=== PATIENT | female | born 1955 | race Caucasian/White ===

== ENCOUNTER 2016-05-17 10:03 | Emergency (ER) | payer OTHER ==
[2016-05-17] MEDS ORDERED: MORPHINE SULFATE 4 MG/ML SYRINGE IV STA (11:25)
[2016-05-17] MEDS ORDERED: SODIUM CHLORIDE 0.9% 1,000 ML IV STA (11:25)
[2016-05-17] MEDS ORDERED: SODIUM CHLORIDE 0.9% 500 ML IV STA (11:25)
[2016-05-17] MEDS ORDERED: ONDANSETRON 4 MG/2 ML VIAL IVP STA (11:25)
[2016-05-17 11:51] LABS: Basophils # (A) 0.1 k/uL (0-0.2); Basophils % (A) 1 %; CH 26.8; CHCM 33.3; Eosinophils % (A) 0 %; HCT 44.2 % (34.0-46.0); HDW 3.26; HGB 14.8 gm/dL (11.4-16.0); Luc # (Auto) 0.13; Luc % (Auto) 1; Lymphocytes % (A) 14 %; MCH 27.2 pg (25.0-35.0); MCHC 33.6 g/dL (31.0-37.0); MCV 80.8 fL (80.0-100.0); Mean Platelet Volume 6.7; Monocytes # (A) 0.4 k/uL (0-1.0); Monocytes % (A) 3 %; Neutrophils # (A) 11.6 k/uL (1.3-7.7); Neutrophils % (A) 82 %; RBC 5.47 m/uL (3.80-5.40); RDW 15.7 % (11.5-15.5); WBC 14.2 k/uL (3.8-10.6); WBC (Perox) 14.07
[2016-05-17 12:06] LABS: Calcium 9.8 mg/dL (8.4-10.2); Potassium 5.2 mmol/L (3.5-5.1); Total Protein 7.6 g/dL (6.3-8.2)
--- NOTE | 2016-05-17 12:18 | ED ---
General Adult HPI - General Chief complaint: Abdominal Pain Stated complaint: pain, rt side flank Time Seen by Provider: 05/17/16 10:38 Source: patient, RN notes reviewed, old records reviewed Mode of arrival: ambulatory Limitations: no limitations - History of Present Illness Initial comments: This is a 60-year-old female here for evaluation of abdominal pain. Right flank pain rating to groin as well as epigastric abdominal pain, no modifying factors or pain Epigastric abdominal pain. No modifying factors for pain. Patient states she does have history of kidney stones and this may feel similar. Pain started last night no fevers or nausea vomiting or diarrhea. No prior history of abdominal surgery. No change in appetite, no recent weight gain or weight loss. - Related Data Home Medications Medication Instructions Recorded Confirmed ALPRAZolam [Xanax] 0.25 mg PO DAILY PRN 05/17/16 05/17/16 Albuterol Inhaler [Ventolin Hfa 2 puff INHALATION DAILY PRN 05/17/16 05/17/16 Inhaler] Citalopram Hydrobromide [CeleXA] 20 mg PO DAILY 05/17/16 05/17/16 Diltiazem HCl [Diltiazem 24Hr ER] 180 mg PO DAILY 05/17/16 05/17/16 Insulin NPH Human Isophane 20 unit SQ BID 05/17/16 05/17/16 [NovoLIN N] Losartan Potassium [Cozaar] 50 mg PO DAILY 05/17/16 05/17/16 glyBURIDE [Diabeta] 10 mg PO DAILY 05/17/16 05/17/16 traMADol HCL [Ultram] 50 mg PO BID PRN 05/17/16 05/17/16 Previous Rx's Medication Instructions Recorded HYDROcodone/APAP 5-325MG [Avalon 1 tab PO Q6HR PRN #30 tab 05/17/16 5-325] Naproxen [Naprosyn] 500 mg PO Q12HR #30 tab 05/17/16 Ondansetron [Zofran] 4 mg PO Q8HR PRN #30 tab 05/17/16 Tamsulosin HCl [Flomax] 0.4 mg PO DAILY #30 cap.er.24h 05/17/16 Allergies Allergy/AdvReac Type Severity Reaction Status Date / Time Sulfa (Sulfonamide Allergy Rash/Hives Verified 05/17/16 10:39 Antibiotics) steroids AdvReac Unknown Uncoded 05/17/16 10:12 Review of Systems ROS Statement: Those systems with pertinent positive or pertinent negative responses have been documented in the HPI. ROS Other: All systems not noted in ROS Statement are negative. Past Medical History Additional Past Medical History / Comment(s): back pain History of Any Multi-Drug Resistant Organisms: None Reported Past Surgical History: Back Surgery Past Psychological History: No Psychological Hx Reported Smoking Status: Never smoker Past Alcohol Use History: None Reported Past Drug Use History: None Reported General Exam Limitations: no limitations General appearance: alert, in no apparent distress Head exam: Present: atraumatic, normocephalic, normal inspection Eye exam: Present: normal appearance, PERRL, EOMI. Absent: scleral icterus, conjunctival injection, periorbital swelling ENT exam: Present: normal exam, mucous membranes moist Neck exam: Present: normal inspection. Absent: tenderness, meningismus, lymphadenopathy Respiratory exam: Present: normal lung sounds bilaterally. Absent: respiratory distress, wheezes, rales, rhonchi, stridor Cardiovascular Exam: Present: regular rate, normal rhythm, normal heart sounds. Absent: systolic murmur, diastolic murmur, rubs, gallop, clicks GI/Abdominal exam: Present: soft, tenderness (Epigastric to right upper quadrant ), normal bowel sounds. Absent: distended, guarding, rebound, rigid Extremities exam: Present: normal inspection, full ROM, normal capillary refill. Absent: tenderness, pedal edema, joint swelling, calf tenderness Back exam: Present: normal inspection Neurological exam: Present: alert, oriented X3, CN II-XII intact Psychiatric exam: Present: normal affect, normal mood Skin exam: Present: warm, dry, intact, normal color. Absent: rash Course Vital Signs 05/17/16 10:10 Temperature 98.3 F Pulse Rate 102 H Respiratory 20 Rate Blood Pressure 187/93 O2 Sat by Pulse 98 Oximetry - Reevaluation(s) Reevaluation #1: 05/17/16 12:50 Patient's pain this point is resolved Medical Decision Making - Medical Decision Making 60 female here for evaluation of bowel pain. Right-sided kidney stone, mild hydro-no UTI, patient can be discharged home - Lab Data Result diagrams: 05/17/16 10:48 05/17/16 10:48 Lab Results 05/17/16 05/17/16 05/17/16 Range/Units 10:48 10:48 10:48 WBC 14.2 H (3.8-10.6) k/uL RBC 5.47 H (3.80-5.40) m/uL Hgb 14.8 (11.4-16.0) gm/dL Hct 44.2 (34.0-46.0) % MCV 80.8 (80.0-100.0) fL MCH 27.2 (25.0-35.0) pg MCHC 33.6 (31.0-37.0) g/dL RDW 15.7 H (11.5-15.5) % Plt Count 381 (150-450) k/uL Neutrophils % 82 % Lymphocytes % 14 % Monocytes % 3 % Eosinophils % 0 % Basophils % 1 % Neutrophils # 11.6 H (1.3-7.7) k/uL Lymphocytes # 2.0 (1.0-4.8) k/uL Monocytes # 0.4 (0-1.0) k/uL Eosinophils # 0.0 (0-0.7) k/uL Basophils # 0.1 (0-0.2) k/uL Sodium 138 (137-145) mmol/L Potassium 5.2 H (3.5-5.1) mmol/L Chloride 98 (98-107) mmol/L Carbon Dioxide 23 (22-30) mmol/L Anion Gap 17 mmol/L BUN 27 H (7-17) mg/dL Creatinine 1.50 H (0.52-1.04) mg/dL Est GFR (MDRD) Af Amer 43 (>60 ml/min/1.73 sqM) Est GFR (MDRD) Non-Af 35 (>60 ml/min/1.73 sqM) Glucose 338 H (74-99) mg/dL Calcium 9.8 (8.4-10.2) mg/dL Total Bilirubin 1.0 (0.2-1.3) mg/dL AST 29 (14-36) U/L ALT 33 (9-52) U/L Alkaline Phosphatase 157 H (38-126) U/L Total Creatine Kinase 40 (30-135) U/L CK-MB (CK-2) 0.2 (0.0-2.4) ng/mL CK-MB (CK-2) Rel Index 0.5 Troponin I <0.012 (0.000-0.034) ng/mL Total Protein 7.6 (6.3-8.2) g/dL Albumin 4.3 (3.5-5.0) g/dL Amylase 58 (30-110) U/L Lipase 266 (23-300) U/L Urine Color Urine Appearance (Clear) Urine pH (5.0-8.0) Ur Specific Prosper (1.001-1.035) Urine Protein (Negative) Urine Glucose (UA) (Negative) Urine Ketones (Negative) Urine Blood (Negative) Urine Nitrite (Negative) Urine Bilirubin (Negative) Urine Urobilinogen (<2.0) mg/dL Ur Leukocyte Esterase (Negative) Urine RBC (0-5) /hpf Urine WBC (0-5) /hpf Ur Squamous Epith Cells (0-4) /hpf Urine Bacteria (None) /hpf 05/17/16 Range/Units 11:49 WBC (3.8-10.6) k/uL RBC (3.80-5.40) m/uL Hgb (11.4-16.0) gm/dL Hct (34.0-46.0) % MCV (80.0-100.0) fL MCH (25.0-35.0) pg MCHC (31.0-37.0) g/dL RDW (11.5-15.5) % Plt Count (150-450) k/uL Neutrophils % % Lymphocytes % % Monocytes % % Eosinophils % % Basophils % % Neutrophils # (1.3-7.7) k/uL Lymphocytes # (1.0-4.8) k/uL Monocytes # (0-1.0) k/uL Eosinophils # (0-0.7) k/uL Basophils # (0-0.2) k/uL Sodium (137-145) mmol/L Potassium (3.5-5.1) mmol/L Chloride (98-107) mmol/L Carbon Dioxide (22-30) mmol/L Anion Gap mmol/L BUN (7-17) mg/dL Creatinine (0.52-1.04) mg/dL Est GFR (MDRD) Af Amer (>60 ml/min/1.73 sqM) Est GFR (MDRD) Non-Af (>60 ml/min/1.73 sqM) Glucose (74-99) mg/dL Calcium (8.4-10.2) mg/dL Total Bilirubin (0.2-1.3) mg/dL AST (14-36) U/L ALT (9-52) U/L Alkaline Phosphatase (38-126) U/L Total Creatine Kinase (30-135) U/L CK-MB (CK-2) (0.0-2.4) ng/mL CK-MB (CK-2) Rel Index Troponin I (0.000-0.034) ng/mL Total Protein (6.3-8.2) g/dL Albumin (3.5-5.0) g/dL Amylase (30-110) U/L Lipase (23-300) U/L Urine Color Light Yellow Urine Appearance Clear (Clear) Urine pH 5.0 (5.0-8.0) Ur Specific Prosper 1.016 (1.001-1.035) Urine Protein Trace H (Negative) Urine Glucose (UA) 4+ H (Negative) Urine Ketones Negative (Negative) Urine Blood Moderate H (Negative) Urine Nitrite Negative (Negative) Urine Bilirubin Negative (Negative) Urine Urobilinogen <2.0 (<2.0) mg/dL Ur Leukocyte Esterase Small H (Negative) Urine RBC 23 H (0-5) /hpf Urine WBC 5 (0-5) /hpf Ur Squamous Epith Cells 2 (0-4) /hpf Urine Bacteria Rare H (None) /hpf - Radiology Data Radiology results: report reviewed (CT of the pelvis positive for kidney stone, ultrasound of gallbladder is negative), image reviewed Disposition Clinical Impression: Abdominal pain, Right kidney stone, Hydronephrosis Disposition: HOME SELF-CARE Condition: Good Instructions: Kidney Stones (ED) Prescriptions: HYDROcodone/APAP 5-325MG [Avalon 5-325] 1 tab PO Q6HR PRN #30 tab PRN Reason: Pain Naproxen [Naprosyn] 500 mg PO Q12HR #30 tab Ondansetron [Zofran] 4 mg PO Q8HR PRN #30 tab PRN Reason: Nausea Tamsulosin HCl [Flomax] 0.4 mg PO DAILY #30 cap.er.24h Referrals: Nonstaff,Physician [Primary Care Provider] - 1-2 days
[2016-05-17 12:21] LABS: Creatine Kinase 40 U/L (30-135)
[2016-05-17 12:29] LABS: Appearance,Urine Clear (Clear); Bacteria,Urine Rare /hpf; Bilirubin,Urine Negative (Negative); Glucose,Urine (UA) 4+ (Negative); Ketones,Urine Negative (Negative); Leukocyte Esterase,Urine Small (Negative); Nitrite,Urine Negative (Negative); Particle Count 3872; Protein,Urine Trace (Negative); RBC,Urine 23 /hpf (0-5); Specific Gravity,Urine 1.016 (1.001-1.035); Squamous Epithelial Cell,Urine 2 /hpf (0-4); UA Billing (MACRO vs. MICRO) MICRO; Urobilinogen,Urine <2.0 mg/dL (<2.0); WBC,Urine 5 /hpf (0-5)
--- NOTE | 2016-05-17 12:33 | US ---
EXAMINATION TYPE: US gallbladder DATE OF EXAM: 05/17/2016 12:14 PM COMPARISON: NONE CLINICAL HISTORY: 60-year-old female with nausea, vomiting, right upper quadrant Pain. TECHNIQUE: Multiple sonographic images of the right upper quadrant are obtained. FINDINGS: EXAM MEASUREMENTS: Liver Length: 24.9 cm Gallbladder Wall: 0.2 cm CBD: 0.3 cm Right Kidney: 11.4 x 5.8 x 5.4 cm Pancreas: Suboptimal visualization of the pancreatic tail secondary to shadowing from bowel gas. Visu alized portions show no gross anomaly. Liver: Enlarged, echogenic, and attenuating. This secondarily limits assessment for focal lesion. Gallbladder: No abnormal gallbladder distention, wall thickening, pericholecystic fluid, or shadowin g calculi. Evidence for sonographic Frey's sign: No CBD: wnl Right Kidney: Moderate hydronephrosis IMPRESSION: 1. Marked hepatomegaly and moderate to severe hepatic steatosis. Correlate with LFTs, lipid profile, and patient risk factors. 2. Moderate right-sided hydronephrosis. Clinically correlate.
[2016-05-17 12:35] LABS: Creatine Kinase MB 0.2 ng/mL (0.0-2.4); Troponin I <0.012 ng/mL (0.000-0.034)
--- NOTE | 2016-05-17 12:42 | CT ---
EXAMINATION TYPE: CT abdomen pelvis wo con DATE OF EXAM: 05/17/2016 12:32 PM COMPARISON: NONE INDICATION: Rt flank pain DLP: 2841.9 mGycm, Automated exposure control for dose reduction was used. CONTRAST: 0 mL of Omnipaque 300. Study performed without Oral Contrast TECHNIQUE: Axial images were obtained from above the diaphragm to the pubic rami in the axial plane a t 5 mm thick sections. Reconstructed images are reviewed on the computer in the coronal plane. FINDINGS: Limited CT sections are obtained the lung bases. The lung bases are clear. CT ABDOMEN: Liver: Normal Spleen: Normal Pancreas: Normal Adrenal glands: The adrenal glands are normal. Gallbladder: Normal Kidneys: No masses are evident. There is a moderate right hydronephrosis. Hydroureter is evident. The re is an obstructing proximal right renal stone measuring 0.4 cm. Series 3 image 51. Some perinephric stranding is present. There is a 2.2 cm cyst measuring 20 Hounsfield units on the medial mid right k idney. Aorta: Mild Vascular calcification is within the aorta. Inferior vena cava: Normal. CT PELVIS: Diffuse scattered diverticuli within the colon. Sigmoid colon contains a few granuloma. Appendix: Not identified Urinary bladder: Normal. Genitourinary structures: Osseous structures: No suspicious lytic or sclerotic lesions. Facet changes are within the lumbar spi ne. IMPRESSIONS: 1. Moderate right hydronephrosis and proximal hydroureter. 2. 0.4 cm obstructing proximal right ureteral stone. 3. Perinephric stranding on the right. 4. Right renal cyst.
[2016-05-17] MEDS ORDERED: KETOROLAC 30 MG/ML 1 ML VIAL IVP STA (12:47)
[2016-05-17 13:07] VITALS: BP 177/87; PULSE 95; RESP 18; TEMP 98.4
== END 2016-05-17 13:08 | disposition home or self-care (01) ==
LOC: EC 10:03
DX: N13.2 Hydronephrosis with renal and ureteral calculous obstruction (principal); R10.13 Epigastric pain; Z79.4 Long term (current) use of insulin; Z79.899 Other long term (current) drug therapy; Z88.2 Allergy status to sulfonamides; Z88.8 Allergy status to other drugs, medicaments and biological substances
CPT/HCPCS: 99284; 96374; 96375 ×2; 96361; 36415; 80053; 82150; 82550; 82553; 83605; 83690; 84484; 85025; 81001; 87086; 76705; 74176; J2270; J2405; J1885